=== PATIENT | male | born 1975 | race Caucasian/White ===

== ENCOUNTER 2023-11-17 21:58 | Inpatient (IN) | payer MEDICAID ==
[~2023-11-17] VITALS: Ht 170.2 cm; Wt 83.9 kg
[2023-11-17] MEDS ORDERED: ACETYLCYSTEINE 200MG/ML 20% VIAL 30ML (INJ) IV ONE (22:45)
[2023-11-17 22:52] LABS: BG BASE EXCESS -0.9 mmol/L (-2.0-2.0); BG CARBOXYHEMOGLOBIN 0.3 % (0.5-1.5); BG DEOXYHEMOGLOBIN 3.9 % (0.0-5.0); BG HCO3 ACT 23.3 mmol/L (22.0-26.0); BG METHEMOGLOBIN 0.2 % (0.0-1.5); BG OXYGEN SATURATION 96.1 % (92.0-98.5); BG OXYHEMOGLOBIN 95.6 % (94.0-97.0); BG PCO2 37.2 mmHg (35.0-45.0); BG PH 7.414 (7.350-7.450); BG PO2 88.5 mmHg (75.0-100.0); BG SAMPLE SITE RIGHT RADIAL; BG TOTAL HEMOGLOBIN 15.7 g/dL (12.0-18.0); BG VENT MODE NASAL CANNULA
[2023-11-17] MEDS: SODIUM CHLORIDE 0.9% 1,000 ML IV ONE (23:03)
[2023-11-17 23:09] LABS: BASOPHILS % 1.2 % (0.0-2.0); EOSINOPHILS % 3.2 % (0.0-5.0); HEMATOCRIT. 41.5 % (42.0-52.0); HEMOGLOBIN. 14.8 g/dL (14.0-18.0); LYMPHOCYTES % 43.7 % (20.0-50.0); MEAN CORPUSCULAR HEMOGLOBIN 31.8 pg (28.0-32.0); MEAN CORPUSCULAR HGB CONC 35.7 g/dL (31.0-37.0); MEAN PLATELET VOLUME 7.6 fl (7.4-10.4); MONOCYTES % 7.9 % (2.0-8.0); PLATELET 240 x1000/uL (130-400); RED BLOOD CELL COUNT 4.66 mill/uL (4.7-6.1); RED CELL DISTRIBUTION WIDTH 12.9 % (11.6-14.6); WHITE BLOOD COUNT 4.6 x1000/uL (4.5-11.0)
[2023-11-17 23:17] LABS: CHLORIDE 108 mEq/L (98-107); POTASSIUM 3.5 mEq/L (3.5-5.1); SODIUM 142 mEq/L (136-145)
[2023-11-17 23:18] LABS: CALCIUM 8.9 mg/dL (8.7-10.4); CARBON DIOXIDE 26 mEq/L (21-32)
[2023-11-17 23:20] LABS: INR 0.9; PARTIAL THROMBOPLASTIN TIME 23.8 sec (23.4-31.0); PROTHROMBIN TIME 10.3 sec (9.6-11.0)
[2023-11-17 23:23] LABS: CREATININE 0.8 mg/dL (0.6-1.3); ETHANOL BLOOD 257 mg/dL (<10); GLUCOSE 119 mg/dL (70-105)
[2023-11-17 23:24] LABS: ALANINE AMINOTRANSFERASE 107 IU/L (10-49); AMMONIA 22 uMol/L (<32)
[2023-11-17 23:25] LABS: ACETAMINOPHEN 121 ug/mL (10-30); ALBUMIN 4.4 g/dL (3.2-4.8); ASPARTATE AMINOTRANSFERASE 57 IU/L (<34); BILIRUBIN TOTAL 0.5 mg/dL (0.1-1.0); CREATINE KINASE 51 IU/L (46-171); PROTEIN TOTAL 6.8 g/dL (6.0-8.3)
[2023-11-17 23:44] LABS: TROPONIN I HIGH SENSITIVITY < 4 ng/L (3.0-53); UREA NITROGEN BLOOD < 5 mg/dL (9-23)
[2023-11-17] MEDS: DEXT 5% IV NR (23:57)
[2023-11-17] MEDS: ACETYLCYSTEINE IV NR (23:57)
[2023-11-17] MEDS: WATER IV NR (23:57)
[2023-11-18 01:42] LABS: CLARITY URINE CLEAR (CLEAR); COLOR URINE YELLOW (YELLOW); GLUCOSE URINE NEGATIVE (NEGATIVE); KETONES URINE 3+ (NEGATIVE); LEUKOCYTE ESTERASE URINE NEGATIVE (NEGATIVE); NITRITE URINE NEGATIVE (NEGATIVE); OCCULT BLOOD URINE NEGATIVE (NEGATIVE); PH URINE 7.5 (4.5-8.0); PROTEIN URINE NEGATIVE (NEGATIVE); SPECIFIC GRAVITY URINE 1.006 (1.005-1.030); UROBILINOGEN URINE 0.2 E.U./dL (0.2-1.0)
[2023-11-18] MEDS: DEXT 5% IV NR (01:49)
[2023-11-18] MEDS: WATER IV NR (01:49)
[2023-11-18] MEDS: ACETYLCYSTEINE IV NR (01:49)
[2023-11-18 01:53] LABS: *AMPHETAMINES SCREEN URINE NEGATIVE (NEGATIVE); *BARBITURATES SCREEN URINE NEGATIVE (NEGATIVE); *BENZODIAZEPINES SCREEN URINE NEGATIVE (NEGATIVE); *COCAINE SCREEN URINE NEGATIVE (NEGATIVE)
[2023-11-18 01:54] LABS: CANNABINOID URINE SCREEN NEGATIVE (NEGATIVE); METHADONE URINE SCREEN NEGATIVE (NEGATIVE); OPIATES URINE SCREEN NEGATIVE (NEGATIVE); PHENCYCLIDINE URINE SCREEN NEGATIVE (NEGATIVE)
[2023-11-18] MEDS: SODIUM CHLORIDE 0.9% 1,000 ML IV ONE ×2 (01:54→03:30)
[2023-11-18 05:31] LABS: ALANINE AMINOTRANSFERASE 103 IU/L (10-49); ASPARTATE AMINOTRANSFERASE 50 IU/L (<34)
[2023-11-18] MEDS ORDERED: IPRATROPIUM/ALBUTEROL 0.5-3(2.5)MG/3ML NEB HHN PRN (12:30)
[2023-11-18 13:59] LABS: ALANINE AMINOTRANSFERASE 94 IU/L (10-49); ALBUMIN 4.1 g/dL (3.2-4.8); ASPARTATE AMINOTRANSFERASE 39 IU/L (<34); BILIRUBIN DIRECT 0.1 mg/dL (<=3.0); BILIRUBIN TOTAL 0.4 mg/dL (0.1-1.0); PROTEIN TOTAL 6.3 g/dL (6.0-8.3)
[2023-11-18] MEDS ORDERED: LORAZEPAM 2MG/ML INJ IV PRN (16:00)
[2023-11-18] MEDS ORDERED: ONDANSETRON HCL 4MG/2ML INJ IV PRN (16:00)
[2023-11-18] MEDS: SODIUM CHLORIDE 0.9% 1,000 ML IV SCH (16:00)
[2023-11-18] MEDS: MVI, ADULT NO.1 10 ML, FOLIC ACID 1 MG, THIAMINE HCL 100 MG in SODIUM CHLORIDE 0.9% 1,0... IV SCH (16:30)
[2023-11-18] MEDS: ENOXAPARIN 40MG/0.4ML SYR SUBCUT SCH (16:30)
[2023-11-18] MEDS: PANTOPRAZOLE SODIUM 40 MG/VIAL IV SCH (16:31)
[2023-11-19 05:46] LABS: CHLORIDE 110 mEq/L (98-107); POTASSIUM 3.9 mEq/L (3.5-5.1); SODIUM 140 mEq/L (136-145)
[2023-11-19 05:47] LABS: CALCIUM 8.8 mg/dL (8.7-10.4); CARBON DIOXIDE 25 mEq/L (21-32)
[2023-11-19 05:52] LABS: CREATININE 0.7 mg/dL (0.6-1.3); GLUCOSE 120 mg/dL (70-105)
[2023-11-19 05:54] LABS: ALANINE AMINOTRANSFERASE 84 IU/L (10-49); ALBUMIN 3.8 g/dL (3.2-4.8); ASPARTATE AMINOTRANSFERASE 34 IU/L (<34); BILIRUBIN DIRECT 0.1 mg/dL (<=3.0); BILIRUBIN TOTAL 0.4 mg/dL (0.1-1.0); PROTEIN TOTAL 5.8 g/dL (6.0-8.3)
[2023-11-19 05:55] LABS: BASOPHILS % 0.4 % (0.0-2.0); EOSINOPHILS % 3.1 % (0.0-5.0); HEMATOCRIT. 40.6 % (42.0-52.0); HEMOGLOBIN. 14.4 g/dL (14.0-18.0); LYMPHOCYTES % 36.7 % (20.0-50.0); MEAN CORPUSCULAR HEMOGLOBIN 31.8 pg (28.0-32.0); MEAN CORPUSCULAR HGB CONC 35.4 g/dL (31.0-37.0); MEAN CORPUSCULAR VOLUME 89.8 fL (80.0-94.0); MEAN PLATELET VOLUME 7.5 fl (7.4-10.4); MONOCYTES % 6.7 % (2.0-8.0); NEUTROPHILS % 53.1 % (40.0-76.0); PLATELET 200 x1000/uL (130-400); RED BLOOD CELL COUNT 4.52 mill/uL (4.7-6.1); RED CELL DISTRIBUTION WIDTH 12.8 % (11.6-14.6); UREA NITROGEN BLOOD < 5 mg/dL (9-23)
[2023-11-19 13:25] VITALS: BP 148/89; PULSE 67; RESP 18; TEMP 98.1
[2023-11-19 13:57] VITALS: BP 148/89; PULSE 67; RESP 18; TEMP 98.1
[2023-11-19 15:50] LABS: HEPATITIS B SURFACE ANTIGEN NEGATIVE (Negative)
[2023-11-19 16:00] VITALS: BP 135/85; PULSE 65; RESP 18; TEMP 98.1
[2023-11-19 16:11] LABS: HEPATITIS C AB NON REACTIVE (Neg) (Negative)
[2023-11-19] MEDS ORDERED: MVI, ADULT NO.1 10 ML, FOLIC ACID 1 MG, THIAMINE HCL 100 MG in SODIUM CHLORIDE 0.9% 1,0... IV SCH (17:00)
[2023-11-19 20:00] VITALS: BP 152/90; PULSE 72; RESP 18; TEMP 97.2
[2023-11-20] VITALS: BP 127/80; PULSE 76; RESP 18; TEMP 97
[2023-11-20] MEDS: FAMOTIDINE 20MG/2ML VIAL IV SCH (08:15)
[2023-11-20 08:30] VITALS: BP 145/95; PULSE 79; RESP 18; TEMP 97.9
[2023-11-20 10:26] VITALS: BP 145/95; PULSE 79; TEMP 97.9; O2SAT 97
[2023-11-20 11:30] VITALS: BP 156/94; PULSE 78; RESP 18; TEMP 97.4
== END 2023-11-20 13:09 | disposition home or self-care (01) | DRG 817 ==
LOC: ER 21:58 → 8WST 11-18 00:48 → EDBEDREQTM 11-18 01:40 → EDBEDREQ 11-18 01:40 → EDBEDREQSVC 11-18 16:53
PROVIDERS: ADMIT Internal Medicine; ATTEND Internal Medicine
DX: T39.1X2A Poisoning by 4-Aminophenol derivatives, intentional self-harm, initial encounter (principal); J96.01 Acute respiratory failure with hypoxia; F15.10 Other stimulant abuse, uncomplicated; F32.9 Major depressive disorder, single episode, unspecified; Z20.822 Contact with and (suspected) exposure to COVID-19; F10.129 Alcohol abuse with intoxication, unspecified; Y90.9 Presence of alcohol in blood, level not specified; Y92.89 Other specified places as the place of occurrence of the external cause
CPT/HCPCS: 36415; 36600; 71045; 80048; 80053; 80076; 80305; 80307; 80320; 80329; 81003; 82140; 82375; 82550; 82805; 83605; 84450; 84460; 84484; 85025; 86705; 86850; 86900; 87340; 87426; 93005; 93970; 96361; 96365; 99285; J0132; J1650; J2470; J3411; J3490; J7030; J7060; G0480